=== PATIENT | female | born 2005 | race Caucasian/White ===

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

== ENCOUNTER → 2025-01-15 | Outpatient (CLI) | payer OTHER ==
[~2025-01-15] MED LIST changes: +NITR100C3 PO
== END ==
LOC: M WHC 14:28
PROVIDERS: ATTEND Nurse Practitioner Family
DX: Z34.80 Encounter for supervision of other normal pregnancy, unspecified trimester (principal)

== ENCOUNTER → 2025-03-25 | Outpatient (REF) | payer OTHER | LOC: M PLALAB 13:35 | PROVIDERS: ATTEND Nurse Practitioner Family | DX: Z53.9 Procedure and treatment not carried out, unspecified reason (principal) ==

== ENCOUNTER → 2025-04-08 | Outpatient (REF) | payer OTHER ==
[2025-04-08 16:10] LABS: TOTAL PROTEIN,RANDOM URINE 64.2 MG/DL (0.0-14.0)
== END ==
LOC: M SFHCWAGY 14:52
PROVIDERS: ATTEND Nurse Practitioner Family
DX: R03.0 Elevated blood-pressure reading, without diagnosis of hypertension (principal)

== ENCOUNTER 2025-04-22 13:44 | Outpatient (CLI) | payer OTHER ==
[~2025-04-22] VITALS: Ht 162.6 cm; Wt 102.0 kg
[2025-04-22] VITALS (13 sets, daily range): BP systolic 121–159; BP diastolic 80–106
[~2025-04-22 13:44] MED LIST changes: -SERT50TA29; +SERT50TA29 PO
[2025-04-22] MEDS ORDERED: HYDR-643 PO (14:11)
[2025-04-22] MEDS ORDERED: PRENTAB9 PO (14:12)
[2025-04-22] MEDS ORDERED: HOME MED LIST COMPLETE! XX SCH (14:15)
[2025-04-22] MEDS: ACETAMINOPHEN 500 MG TAB PO ONE (14:32)
[2025-04-22 14:47] LABS: PLATELET COUNT, AUTOMATED 262 10^3/uL (150-450)
[2025-04-22 15:13] LABS: TOTAL PROTEIN,RANDOM URINE 27.1 MG/DL (0.0-14.0)
[2025-04-22 15:18] LABS: LDH LACTATE DEHYDROGENASE 142 U/L (120-246)
[2025-04-22 15:27] LABS: ALT/SGPT 9 U/L (7.0-40); AST/SGOT 13 U/L (<34); CREATININE FOR GFR 0.45 MG/DL (0.55-1.30); GLOMERULAR FILTRATION RATE > 90.0 (>60); GLUCOSE,RANDOM 190 MG/DL (LESS THAN 200)
[2025-04-22] MEDS: LABETALOL 100 MG TAB PO ONE (18:45)
[2025-04-22] MEDS: BETAMETHASONE SOLUSPAN 6 MG/ML 5 ML VIAL IM SCH (18:46)
[2025-04-23] MEDS ORDERED: METF500T13 (19:17)
[2025-04-23] MEDS ORDERED: LABE100T6 (19:17)
== END 2025-04-22 20:04 | disposition home or self-care (01) ==
LOC: M LDO 13:44
PROVIDERS: ATTEND Advanced Practice Midwife
DX: O14.93 Unspecified pre-eclampsia, third trimester (principal); O24.415 Gestational diabetes mellitus in pregnancy, controlled by oral hypoglycemic drugs; O99.343 Other mental disorders complicating pregnancy, third trimester; F41.9 Anxiety disorder, unspecified; F32.A Depression, unspecified; F84.5 Asperger's syndrome; Z67.41 Type O blood, Rh negative; Z3A.33 33 weeks gestation of pregnancy
CPT/HCPCS: 36415; 59025; 76816; 76819; 76820; 82247; 82570; 82947; 83615; 84156; 84450; 84460; 84550; 85027; 96372; G0463; J0702

== ENCOUNTER 2025-04-23 18:51 | Outpatient (CLI) | payer OTHER ==
[~2025-04-23] VITALS: Ht 162.6 cm; Wt 102.3 kg
[~2025-04-23 18:51] MED LIST changes: +HYDR-643 PO; +PRENTAB9 PO
[2025-04-23] MEDS ORDERED: LABE100T6 (19:17)
[2025-04-23] MEDS ORDERED: METF500T13 (19:17)
[2025-04-23] MEDS: BETAMETHASONE SOLUSPAN 6 MG/ML 5 ML VIAL IM ONE (19:22)
[2025-04-23 19:23] VITALS: BP 117/93
[2025-04-23 19:39] VITALS: BP 145/84
== END 2025-04-23 19:40 | disposition home or self-care (01) ==
LOC: M LDO 18:51
PROVIDERS: ATTEND Specialist
DX: O14.93 Unspecified pre-eclampsia, third trimester (principal); O24.415 Gestational diabetes mellitus in pregnancy, controlled by oral hypoglycemic drugs; O99.343 Other mental disorders complicating pregnancy, third trimester; F41.9 Anxiety disorder, unspecified; F32.A Depression, unspecified; F84.5 Asperger's syndrome; Z67.41 Type O blood, Rh negative; Z3A.33 33 weeks gestation of pregnancy
CPT/HCPCS: 59025; 96372; G0463; J0702

== ENCOUNTER 2025-05-08 15:56 | Inpatient (IN) | payer OTHER ==
[~2025-05-08] VITALS: Ht 162.6 cm; Wt 104.9 kg
[2025-05-08] VITALS (7 sets, daily range): BP systolic 130–167; BP diastolic 77–98
[~2025-05-08 15:56] MED LIST changes: -ACET-907 PO; -COLA100C5 PO; -IBUP80TA PO
[2025-05-08] MEDS ORDERED: METF500T13 PO (16:23)
[2025-05-08] MEDS ORDERED: ACET-907 PO (16:25)
[2025-05-08] MEDS ORDERED: TRANEXAMIC ACID INJection 1,000 MG in NS 100 ML IV PRN (16:55)
[2025-05-08] MEDS ORDERED: METHYLERGONOVINE MALEATE 0.2 MG/ML 1 ML VIAL IM PRN (16:55)
[2025-05-08] MEDS ORDERED: CARBOPROST TROMETHAMINE 250 MCG/ML AMP IM PRN (16:55)
[2025-05-08] MEDS ORDERED: LIDOCAINE 1% MDV 20 ML VIAL INFIL PRN (16:55)
[2025-05-08] MEDS: miSOPROStol 50 MCG 1/2 TABLET PO SCH (17:50)
[2025-05-08 17:55] LABS: PLATELET COUNT, AUTOMATED 304 10^3/uL (150-450)
[2025-05-08 19:02] LABS: HIV 1&2 SCREEN NEGATIVE (NEGATIVE)
[2025-05-08 19:09] LABS: HEPATITIS C VIRUS ABY INDEX < 0.02 INDEX (<0.8)
[2025-05-08] MEDS ORDERED: PILL CUTTER 1 EACH XX PRN (20:40)
[2025-05-08] MEDS: SERTRALINE 100 MG TAB PO SCH (21:13)
[2025-05-08] MEDS: metFORMIN 500 MG TAB PO SCH (21:14)
[2025-05-08] MEDS: PRENATAL VITAMINS CHEWABLE TABLET PO SCH (21:14)
[2025-05-08] MEDS: LABETALOL 100 MG TAB PO SCH (21:17)
[2025-05-09] VITALS (14 sets, daily range): BP systolic 121–147; BP diastolic 77–99; TEMP 97.2; O2SAT 97–99
[2025-05-09] MEDS: LACTATED RINGER'S 1000 ML IV STA (09:50)
[2025-05-09] MEDS: LR 1,000 ML IV SCH ×2 (11:28→18:15)
[2025-05-09] MEDS ORDERED: MORPHINE PRES-FREE INJ 10 MG/10 ML VIAL As Ordered ONE (11:37)
[2025-05-09] MEDS ORDERED: ONDANSETRON 4MG 2ML VIAL As Ordered ONE (11:41)
[2025-05-09] MEDS: BICITRA 30 ML SOLN UDC PO ONE (11:58)
[2025-05-09] MEDS: ceFAZolin SODIUM 2 GM in DEXTROSE 5% (D5W) ADV/MINI-BAG 50 ML IV ONE (11:59)
[2025-05-09] MEDS ORDERED: OXYTOCIN 30UNITS IN 0.9% NaCl 500ML IV BAG As Ordered ONE (12:27)
[2025-05-09] MEDS ORDERED: ACETAMINOPHEN 1000MG/100ML IV BAG As Ordered ONE (12:28)
[2025-05-09] MEDS ORDERED: dexAMETHasone 4 MG/ML 1 ML VIAL As Ordered ONE (12:28)
[2025-05-09] MEDS ORDERED: KETOROLAC 30 MG/ML 1 ML VIAL As Ordered ONE (12:28)
[2025-05-09] MEDS ORDERED: PHENYLephrine 500MCG 5ML (100MCG/ML) SYRINGE As Ordered ONE (12:36)
[2025-05-09 13:07] LABS: CORD GAS ABE A -2.7; CORD GAS ABE V -1.1; CORD GAS HCO3 A 25.4 MMOL/L; CORD GAS HCO3 V 26.0 MMOL/L; CORD GAS O2 SAT A 45.7 %; CORD GAS O2 SAT V 48.2 %; CORD GAS PCO2 A 57.3 mmHg; CORD GAS PCO2 V 52.8 mmHg; CORD GAS PH A 7.264 UNITS; CORD GAS PH V 7.31 UNITS; CORD GAS PO2 A 21.4 mmHg; CORD GAS PO2 V 21.3 mmHg; CORD GAS SBC A 21.0 MMOL/L; CORD GAS SBC V 22.3 MMOL/L; CORD GAS TCO2 A 27.1 MMOL/L; CORD GAS TCO2 V 27.6 MMOL/L
[2025-05-09] MEDS ORDERED: **NOTE PATIENT COMMENT** MISC XX SCH (13:25)
[2025-05-09] MEDS ORDERED: NALOXONE INJ 0.4 MG/1 ML VIAL IV PRN ×2 (13:25)
[2025-05-09] MEDS ORDERED: HYDROMORPHONE HCL 0.5 MG/0.5 ML SYRINGE IV PRN (13:25)
[2025-05-09] MEDS ORDERED: MORPHINE 2 MG/ML 1 ML VIAL IV PRN (13:25)
[2025-05-09] MEDS ORDERED: diphenhydrAMINE 50 MG/ML VIAL IV PRN (13:25)
[2025-05-09] MEDS ORDERED: RHOGAM 300MCG (1500IU) INJ IM SCH (13:30)
[2025-05-09] MEDS ORDERED: MOM 30 ML SUSPENSION UDC PO PRN (13:30)
[2025-05-09] MEDS ORDERED: SIMETHICONE 80MG CHEW TAB PO PRN (13:30)
[2025-05-09] MEDS: SLF 3 ML SYR IV SCH (14:00)
[2025-05-09] MEDS: OXYTOCIN DRIP 30 UNITS in IV 1 EA IV PRN (14:00)
[2025-05-09] MEDS: KETOROLAC 30 MG/ML 1 ML VIAL IV SCH (18:43)
[2025-05-09] MEDS: DOCUSATE SODIUM 100 MG CAPSULE PO SCH (20:23)
[2025-05-10 02:00] VITALS: BP 140/84; O2SAT 97
[2025-05-10 06:00] VITALS: BP 135/84; O2SAT 100
[2025-05-10] MEDS: FERROUS SULFATE 325 MG TAB PO SCH (08:19)
[2025-05-10] MEDS ORDERED: PRENATAL VITAMINS CHEWABLE TABLET PO SCH (09:00)
[2025-05-10 09:13] LABS: PLATELET COUNT, AUTOMATED 253 10^3/uL (150-450)
[2025-05-10 10:00] VITALS: BP 129/67; O2SAT 99
[2025-05-10] MEDS: ACETAMINOPHEN 500 MG TAB PO PRN (12:28)
[2025-05-10] MEDS: IBUPROFEN 800 MG TAB PO SCH (15:27)
[2025-05-10 18:00] VITALS: BP 137/85; O2SAT 99
[2025-05-10 22:00] VITALS: BP 128/72; O2SAT 97
[2025-05-11 02:00] VITALS: BP 124/67; O2SAT 96
[2025-05-11 06:00] VITALS: BP 119/58; O2SAT 98
[2025-05-11] MEDS: MEASLES,MUMPS,RUBELLA VACCINE INJ (MMR-II) SC.IMMUN ONE (08:30)
[2025-05-11 10:00] VITALS: BP 130/79; O2SAT 99
[2025-05-11 18:00] VITALS: BP 142/85; O2SAT 98
[2025-05-11 22:00] VITALS: BP 138/86; O2SAT 98
[2025-05-12 01:50] VITALS: BP 129/79; O2SAT 98
[2025-05-12 06:00] VITALS: BP 136/82; O2SAT 98
[2025-05-12 09:27] VITALS: BP 139/80
[2025-05-12] MEDS ORDERED: COLA100C5 PO (10:02)
[2025-05-12] MEDS ORDERED: IBUP80TA PO (10:02)
== END 2025-05-12 15:40 | disposition home or self-care (01) | DRG 540 ==
LOC: M LDI 15:56 → M OBS 05-09 15:25
PROVIDERS: ADMIT Advanced Practice Midwife; ATTEND Obstetrics & Gynecology
PROC: 3E0P7GC Introduction of Other Therapeutic Substance into Female Reproductive, Via Natural or Artificial Opening (ICD-10-PCS; 2025-05-08)
PROC: 10D00Z1 Extraction of Products of Conception, Low, Open Approach (ICD-10-PCS; principal; 2025-05-09 11:55)
DX: O36.5930 Maternal care for other known or suspected poor fetal growth, third trimester, not applicable or unspecified (principal); O24.425 Gestational diabetes mellitus in childbirth, controlled by oral hypoglycemic drugs; O76 Abnormality in fetal heart rate and rhythm complicating labor and delivery; Z3A.36 36 weeks gestation of pregnancy; O14.04 Mild to moderate pre-eclampsia, complicating childbirth; Z91.013 Allergy to seafood; Z88.8 Allergy status to other drugs, medicaments and biological substances; Z79.84 Long term (current) use of oral hypoglycemic drugs; Z79.899 Other long term (current) drug therapy; Z37.0 Single live birth

== ENCOUNTER → 2025-05-08 | Outpatient (CLI) | payer OTHER ==
[~2025-05-08] MED LIST changes: +ACET-907 PO; +COLA100C5 PO; +IBUP80TA PO; +LABE100T6; +METF500T13
[2025-05-08 13:08] LABS: PLATELET COUNT, AUTOMATED 278 10^3/uL (150-450)
[2025-05-08 13:09] LABS: LDH LACTATE DEHYDROGENASE 137 U/L (120-246)
[2025-05-08 13:10] LABS: ALT/SGPT 13 U/L (7.0-40); AST/SGOT 13 U/L (<34); CREATININE FOR GFR 0.46 MG/DL (0.55-1.30); GLOMERULAR FILTRATION RATE > 90.0 (>60)
[2025-05-08 13:32] LABS: TOTAL PROTEIN,RANDOM URINE 108.4 MG/DL (0.0-14.0)
== END ==
LOC: M PLALAB 11:27
PROVIDERS: ATTEND Obstetrics & Gynecology
DX: O14.93 Unspecified pre-eclampsia, third trimester (principal)